=== PATIENT | female | born 1990 | race Caucasian/White ===

== ENCOUNTER 2017-10-31 10:26 | Outpatient (CLI) | payer OTHER ==
--- NOTE | 2017-10-31 11:55 | RAD ---
THREE VIEWS RIGHT HAND: HISTORY: Right thumb pain. FINDINGS: AP, lateral, and oblique views of the right hand are obtained. The right hand is unremarkable. No evidence of right hand fractures, subluxations, or bony lesions s een. IMPRESSION: Normal three views right hand. POS: [facility]
== END 2017-10-31 10:27 | disposition home or self-care (01) ==
LOC: RAD-FRANK 10:26
PROVIDERS: ATTEND Internal Medicine
DX: S69.90XA Unspecified injury of unspecified wrist, hand and finger(s), initial encounter (principal)

== ENCOUNTER 2018-02-22 11:16 | Emergency (ER) | payer BC ==
[2018-02-22 12:42] LABS: #Basophils 0.1 thou/uL (0.0-0.2); #Eosinphils 0.3 thou/uL (0.0-0.7); #Lymphocytes 2.3 thou/uL (1.20-3.40); #Monocytes 0.5 thou/uL (0.11-0.59); #Neutrophils 5.5 thou/uL (1.40-6.50); %Basophils 0.9 % (0.0-1.0); %Eosinophils 2.9 % (0.0-10.0); %Monocytes 5.4 % (0.0-10.0); %Neutrophils 63.7 % (42.0-75.0); Hemoglobin 14.1 g/dL (12.0-16.0); Mean Corpuscular HGB CONC 34.8 g/dL (32.0-36.0); Mean Corpuscular Hemoglobin 32.4 pg (27.0-31.0); Mean Corpuscular Volume 93.1 fL (78.0-98.0); Mean Platelet Volume 6.5 fL (7.4-10.4); Platelet Count 388 thou/uL (130-400); RBC Distribution Width 12.4 % (11.5-14.5); Red Blood Cell (RBC) Count 4.34 mill/uL (4.20-5.40); White Blood Cell (WBC) Count 8.6 thou/uL (4.8-10.8)
[2018-02-22] MEDS ORDERED: Acetaminophen 325 MG TAB ONE (12:57)
[2018-02-22 13:04] LABS: ALT (SGPT) 11 U/L (8-55); AST (SGOT) 10 U/L (5-34); Albumin 4.4 g/dL (3.5-5.0); Alkaline Phosphatase 66 U/L (40-150); Anion Gap 11 mmol/L (10-20); BUN (Urea Nitrogen) 9 mg/dL (7.0-18.7); Bilirubin, Total 0.2 mg/dL (0.2-1.2); Calc. Creatinine Clearance 0 mL/min (70-130); Calcium 9.4 mg/dL (7.8-10.44); Carbon Dioxide 27 mmol/L (22-29); Chloride 107 mmol/L (98-107); Estimated GFR-MDRD Greater than 90; Globulin 2.5 g/dL (2.4-3.5); Glucose 77 mg/dL (70-105); Potassium 4.1 mmol/L (3.5-5.1); Protein, Total 6.9 g/dL (6.0-8.3); Sodium 141 mmol/L (136-145)
[2018-02-22] MEDS ORDERED: Ketorolac Tromethamine 30 MG/ML VIAL ONE (13:11)
[2018-02-22 13:16] LABS: BHCG - Serum Negative (NEGATIVE); Pregs Control Background? CLEAR/WHITE (CLR/WHITE); Pregs Control Bar Appear? YES (CONTROL BAR)
--- NOTE | 2018-02-22 13:54 | CT ---
CT BRAIN: Date: 02/22/18 PROVIDED CLINICAL HISTORY: Head pain status post trauma. FINDINGS: The ventricular system appears normal in size and morphology. There is no evidence for intracranial h emorrhage or mass effect. The extracranial soft tissues and osseous structures demonstrate no acute a bnormality. IMPRESSION: No evidence for intracranial hemorrhage or mass effect. POS: [facility]
--- NOTE | 2018-02-22 13:57 | CT ---
CT CERVICAL SPINE: Date: 02/22/18 PROVIDED CLINICAL HISTORY: Neck pain status post trauma. FINDINGS: There is no evidence for fracture or traumatic subluxation. No prevertebral soft tissue swelling appa rent. The visualized lung apices appear clear. IMPRESSION: No evidence for fracture or traumatic subluxation. POS: [facility]
[2018-02-22] MEDS ORDERED: Morphine 4 MG/ML VIAL ONE (14:30)
--- NOTE | 2018-02-22 15:47 | RAD ---
LEFT SHOULDER RADIOGRAPHS THREE VIEWS: 02/22/18 PROVIDED CLINICAL HISTORY: Shoulder pain status post injury. FINDINGS: There is no evidence for fracture or other acute osseous abnormality. If there is persistent clinical concern, conservative management and followup imaging are advised. IMPRESSION: As above. POS: [facility]
== END 2018-02-22 15:40 | disposition home or self-care (01) ==
LOC: ERS 11:16
DX: S09.90XA Unspecified injury of head, initial encounter (principal); M54.2 Cervicalgia; F41.9 Anxiety disorder, unspecified; V89.2XXA Person injured in unspecified motor-vehicle accident, traffic, initial encounter; Z79.899 Other long term (current) drug therapy
CPT/HCPCS: 36415; 70450; 72125; 80053; 84703; 85025; 96365; 96375; J1885; J2270

== ENCOUNTER 2018-06-04 18:34 | Emergency (ER) | payer BC ==
[2018-06-04 21:45] LABS: Bilirubin Negative (Negative); Blood, Urine Negative (Negative); Clarity CLEAR (Clear); Glucose, Urine (Dipstick) Negative (Negative); Leukocyte Negative (Negative); Nitrite Negative (Negative); Protein, Urine (Dipstick) Negative (Neg-Trace); Specific Gravity, Urine 1.036 (1.002-1.036); Urobilinogen 0.2 mg/dL (0.2-1.0); pH, Urine 5.5 (5.0-9.0)
[2018-06-04 21:46] LABS: Pregnancy Test - Urine (BHCG) Negative (Negative); Pregu Control Background? CLEAR/WHITE (CLR/WHITE); Pregu Control Bar Appear? YES (CONTROL BAR); Specific Gravity 1.036 (1.002-1.036)
[2018-06-04 23:03] LABS: #Basophils 0.1 thou/uL (0.0-0.2); #Eosinphils 0.1 thou/uL (0.0-0.7); #Lymphocytes 3.7 thou/uL (1.20-3.40); #Monocytes 0.8 thou/uL (0.11-0.59); #Neutrophils 7.2 thou/uL (1.40-6.50); %Basophils 0.7 % (0.0-1.0); %Eosinophils 0.5 % (0.0-10.0); %Lymphocytes 31.2 % (21.0-51.0); %Monocytes 6.4 % (0.0-10.0); %Neutrophils 61.1 % (42.0-75.0); Hemoglobin 11.7 g/dL (12.0-16.0); Mean Corpuscular HGB CONC 32.2 g/dL (32.0-36.0); Mean Corpuscular Hemoglobin 29.7 pg (27.0-31.0); Mean Corpuscular Volume 92.3 fL (78.0-98.0); Mean Platelet Volume 6.7 fL (7.4-10.4); Platelet Count 449 thou/uL (130-400); RBC Distribution Width 14.4 % (11.5-14.5); Red Blood Cell (RBC) Count 3.94 mill/uL (4.20-5.40); White Blood Cell (WBC) Count 11.7 thou/uL (4.8-10.8)
[2018-06-04 23:19] LABS: ALT (SGPT) 13 U/L (8-55); AST (SGOT) 10 U/L (5-34); Alkaline Phosphatase 52 U/L (40-150); Anion Gap 7 mmol/L (10-20); BUN (Urea Nitrogen) 15 mg/dL (7.0-18.7); Bilirubin, Total Less than 0.2 mg/dL (0.2-1.2); Calc. Creatinine Clearance 0 mL/min (70-130); Calcium 8.7 mg/dL (7.8-10.44); Carbon Dioxide 26 mmol/L (22-29); Chloride 108 mmol/L (98-107); Estimated GFR-MDRD Greater than 90; Globulin 2.3 g/dL (2.4-3.5); Glucose 116 mg/dL (70-105); Potassium 3.9 mmol/L (3.5-5.1); Protein, Total 6.3 g/dL (6.0-8.3); Sodium 137 mmol/L (136-145)
--- NOTE | 2018-06-05 09:06 | MRI ---
MRI LUMBAR SPINE WITH AND WITHOUT IV CONTRAST: 06/04/2018 HISTORY: The patient has had bilateral lower extremity weakness since yesterday. The patient fell this mornin g. History of back surgery. COMPARISON: None available. FINDINGS: There are increased T2 weighted signal intensity lesions at the superior pole of each kidney and a la rger in size superior pole left kidney, measuring 1.3 cm, which do not demonstrate enhancement on the post contrast images and are suggestive of renal cysts. There is probably small calcification at th e posterior margin of the left renal cyst versus milk of calcium. Retroperitoneal structures otherwi se demonstrate a normal MRI appearance. Extensive post surgical changes of the lower thoracic and lumbar spine are noted, with susceptibility artifact related to bipedicular screws in the T11, T12, and L1 vertebral bodies. The degree of susc eptibility artifact completely obscures these levels, and the central spinal canal and neural foramin a, as well as the distal spinal cord and conus medullaris are unable to be evaluated. There is metallic susceptibility artifact related to bipedicular screws and posterior rods transfixin g the L3-L4 and L4-L5 levels. L1-L2: There is no significant disk bulge or disk herniation. The central spinal canal and neural f oramina are patent. L2-L3: There is no disk bulge or disk herniation. The central spinal canal and neural foramina are patent. L3-L4: There is loss of intervertebral disk height. There is a mild broad-based disk osteophyte com plex. This does result in mild effacement of the ventral aspect of the thecal sac. The neural rohith aileen are patent at this level. L4-L5: There is minimal disk osteophyte complex. There are facet hypertrophic changes at this level . The central spinal canal is patent, but there is mild bilateral neural foraminal narrowing present . L5-S1: These is no disk bulge or disk herniation. The central spinal canal and neural foramina at t his level are patent. No abnormal areas of enhancement are seen after the administration of intravenous contrast. The conus medullaris is completely obscured due to significant metallic susceptibility artifact, lowe r thoracic and upper lumbar spine. IMPRESSION: 1. Obscuration of the T11, T12, and L1 vertebral bodies, including the central spinal canal and neur al foramina, at these levels, due to significant susceptibility artifact from spinal hardware. 2. Mild disk degenerative changes at the L3-L4 and L4-L5 levels. There is no significant narrowing of the central spinal canal at these levels. There is at least mild bilateral neural foraminal narro wing at the L4-L5 level. 3. Bilateral renal cysts. 4. The conus medullaris is unable to be visualized due to obscuration by susceptibility artifact. 5. No abnormal areas of enhancement are seen after the administration of intravenous contrast. POS: [facility]
--- NOTE | 2018-06-05 13:55 | RAD ---
TWO VIEWS OF THE SKULL: 06/04/18 HISTORY: Evaluate for foreign body. FINDINGS: Metallic densities are seen lateral to the right mastoid bone likely related to external jewelry. No additional radiopaque or metallic foreign body is seen. There is a suggested lucency overlying the oc cipital bones, but similar finding was seen on tool maintenance technician view of CT head on 02/22/18, and CT exam demonstr ated no lytic bone lesion and this is probably projectional in origin. No fracture is seen. The visua lized paranasal sinuses appear clear. IMPRESSION: No radiopaque or metallic foreign body is seen. Metallic densities are seen lateral to the right mast oid bone, related to external jewelry. POS: [facility]
== END 2018-06-05 01:00 | disposition home or self-care (01) ==
LOC: ERS 18:34
DX: M54.5 Low back pain (principal); I10 Essential (primary) hypertension; M81.0 Age-related osteoporosis without current pathological fracture; F41.9 Anxiety disorder, unspecified; F17.210 Nicotine dependence, cigarettes, uncomplicated; Z79.899 Other long term (current) drug therapy
CPT/HCPCS: 70250; 72158; 80053; 81003; 81025; 85025

== ENCOUNTER 2018-07-18 09:16 | Outpatient (CLI) | payer BC | END 2018-07-18 09:17 | disposition home or self-care (01) | LOC: BICMAMMO 09:16 | PROVIDERS: ATTEND Nurse Practitioner Family | DX: N64.4 Mastodynia (principal) | CPT/HCPCS: 77066; G0279 ==